=== PATIENT | male | born 1975 | race Caucasian/White ===

== ENCOUNTER → 2020-07-02 09:06 | Outpatient (CLI) | payer OTHER, SELFPAY ==
--- NOTE | 2020-07-02 | DI.RAD.S_ITS ---
PROCEDURE: FL SHOULDER INJECTION MR/CT LT INDICATIONS: PAIN IN LEFT SHOULDER TECHNIQUE: The indications, alternatives, benefits, risks, and complications of the procedure were explained to the patient. Written informed consent was obtained and placed in the chart. The shoulder was examined fluoroscopically and a site for needle placement chosen for entry into the glenohumeral joint from an anterior approach. The skin was prepped and draped in a sterile fashion, and 1% lidocaine infiltrated from skin down to joint capsule. A spinal needle was inserted into the glenohumeral joint, and a small amount of iodinated contrast media injected to confirm intra-articular placement of the needle tip. This was followed by approximately 12 mL dilute solution of a gadolinium containing MR contrast agent. The needle was removed and a dressing was applied. The patient was given postprocedural instructions and sent to the MR suite for MR imaging. FINDINGS: A single fluoroscopic spot image demonstrates intra-articular location of injected iodinated contrast. IMPRESSION: Successful fluoroscopically guided administration of dilute Gadolinium solution into the shoulder joint for MR arthrogram. Dictated by: Augustin Khan M.D. on 07/02/2020 at 10:39 Approved by: Augustin Kahn M.D. on 07/02/2020 at 10:39
--- NOTE | 2020-07-02 | DI.MRI.S_ITS ---
PROCEDURE: MR SHOULDER LT W CON INDICATIONS: PAIN IN LEFT SHOULDER TECHNIQUE: After the administration of 12 mL of dilute intra-articular Gadolinium contrast, oblique coronal T1 and T2 spin echo with fat saturation, oblique sagittal T1 spin echo with and without fat saturation, oblique sagittal T2 fast spin echo with fat saturation, axial T1 spin echo with fat saturation through the shoulder. COMPARISON: None. FINDINGS: Image quality: Excellent. Rotator cuff: There is tendinosis and low-grade articular surface partial-thickness tear involving distal supraspinatus at its insertion on the humeral head. Low-grade bursal surface partial thickness tear involving distal supraspinatus is also seen near musculotendinous junction. Distal infraspinatus tendon is intact. Distal subscapularis tendon is intact. No full-thickness rotator cuff tendon rupture. No rotator cuff muscle atrophy on sagittal images. Bones and bursae: No bone marrow contusions or fractures. Acromioclavicular joint osteoarthritic changes are noted with downward osteophyte formation depressing the musculotendinous junction of supraspinatus. Capsule and soft tissues: There is contrast extension and contour irregularity involving superior anterior labrum at 11 to 2 o'clock position. Adjacent septated paralabral cyst is seen measures 2 x 1.4 x 1.1 centimeters in size. The glenohumeral ligaments appear intact. The long head of the biceps tendon demonstrates normal location and morphology. The rotator interval appears normal, without fibrosis. The coracohumeral ligament is of normal thickness. No intra-articular bodies. IMPRESSION: 1. Superior anterior labral tear at 11 to 2 o'clock position with adjacent 2 x 1.4 x 1.1 cm perilabral cyst. 2. Tendinosis and low-grade articular and bursal surface partial thickness tear involving distal supraspinatus as above. No full-thickness rotator cuff tendon rupture. 3. Mild to moderate acromioclavicular joint osteoarthritis. Dictated by: Quincy Sidhu M.D. on 07/02/2020 at 12:12 Approved by: Quincy Sidhu M.D. on 07/02/2020 at 12:36
== END ==
DX: M25.512 Pain in left shoulder (principal); S43.492A Other sprain of left shoulder joint, initial encounter; M19.012 Primary osteoarthritis, left shoulder; M75.112 Incomplete rotator cuff tear or rupture of left shoulder, not specified as traumatic
CPT/HCPCS: 23350; 73222; 77002

== ENCOUNTER → 2021-10-21 13:51 | Outpatient (CLI) | payer OTHER, SELFPAY ==
[2021-10-21 15:39] LABS: COVID19 -Nasal RAPID Negative (Negative)
== END ==
PROVIDERS: Referring Provider Nurse Practitioner Family; Visit Provider Nurse Practitioner Family
DX: Z01.812 Encounter for preprocedural laboratory examination (principal); Z20.822 Contact with and (suspected) exposure to COVID-19
CPT/HCPCS: 87635

== ENCOUNTER 2021-10-22 10:20 | Day surgery (SDC) | payer OTHER, SELFPAY ==
--- NOTE | 2021-10-22 | PATH_ITS ---
[facility] Accession Number: [id number] No. of containers..02 Tissue . 01 Material submitted: . PART A: colon - POLYPS SIGMOID AND TRANSVERSE COLON PART B: colon - BIOPSY COLON POLYP AT 14 CM FROM ANAL VERGE . 02 Diagnosis: A. Sigmoid and Transverse Colon, Polyps, Biopsies: Fragments of tubular adenoma. . B. Colon Polyp at 14 cm, Biopsies: Tubulovillous adenoma, fragmented. Negative for high-grade dysplasia or malignancy. MRV 10/24/2021 1129 Local . 02 Electronically signed: . Jeremy Koenig MD, PhD, Pathologist NPI- [id number] . 01 Gross description: . Part A: POLYPS SIGMOID AND TRANSVERSE COLON: Received in formalin are 3 fragment(s) of tapia, soft tissue measuring 0.2 x 0.2 x 0.1 cm to 0.3 x 0.3 x 0.2 cm submitted entirely in 1 cassette(s) Part B: BIOPSY COLON POLYP AT 14 CM FROM ANAL VERGE: Received in formalin are multiple fragment(s) of tapia, soft tissue measuring 0.1 x 0.1 x 0.1 cm to 0.3 x 0.2 x 0.2 cm submitted entirely in 1 cassette(s) /SHIRA 10/23/2021 1943 Local . 02 Pathologist provided ICD-10: D12.3, D12.5, D12.6 . 02 CPT . 712151, 820101 Performed at: 01 [facility] [address] [place] [address], [place], [place] [id number] MD Dante Al MD Phone: [phone] Performed at: 02 [facility] [address] [place], [place] [id number] MD Lorraine Canada MD Phone: [phone]
[2021-10-22 10:31] VITALS: BP 173/108; PULSE 94; RESP 16; TEMP 36.5; O2SAT 99; BMI 29.9
[2021-10-22] MEDS: SODIUM CHLORIDE 0.9% 1,000 ML 84 ML IV (10:47)
--- NOTE | 2021-10-22 10:59 | PM.HP.1 ---
History of Present Illness History of Present Illness Date Patient Seen: 10/22/21 Time Patient Seen: 10:59 Chief complaint: SDC Narrative: I reviewed my August 26, 2021 note. No significant bleeding since that time. Otherwise no significant changes. Patient History Family & Social History Social History: household members spouse Tobacco & Substance use: Smoking Status Never smoker alcohol intake frequency holiday/special occasion Substance Use Type does not use Meds Home Medications and Allergies Home Medications Medication Instructions Recorded Confirmed Type qwgisag-hkygcsvhuntqz-kxhxiopp 250 2 tab PO Q6H PRN 10/01/21 10/01/21 History mg-250 mg-65 mg tablet (Excedrin Extra Strength) ibuprofen 200 mg capsule (Motrin 400 mg PO Q8H 10/01/21 10/22/21 History IB) Allergies Allergy/AdvReac Type Severity Reaction Status Date / Time No Known Drug Allergies Allergy Verified 10/22/21 10:26 Review of Systems Review of Systems ROS: Yes All systems reviewed with the patient and are negative except as otherwise documented Exam Vital Signs (past 8 hours): - 10/22/21 10:31 Temperature 97.7 F Pulse Rate 94 H Respiratory Rate 16 Blood Pressure 173/108 H Pulse Oximetry 99 Oxygen Delivery Method Room Air Const General: cooperative and comfortable Orientation: alert HENMT Head: normocephalic Ears: external ears normal Nose: external nose normal Face and sinus: normal facial exam Eyes General: appearance normal, both eyes and all related structures Neck Neck: normal visual inspection Chest Chest: normal inspection of the chest Resp Effort & Inspection: normal respiratory effort Cardio Rate: regular rate GI Inspection: normal to inspection Skin General: no rashes or lesions noted and No jaundice Neuro General: patient alert and moves all extremities Cognition: normal cognition Speech: speech normal Extrem General: no pedal edema Psych Appearance: grossly normal Assessment & Plan Assessment & Plan narrative: 46-year-old male with altered bowel habit history of rectal bleeding. Abdominal pain. Colonoscopy is pursued today. Time Spent With Patient Critical Care time: I spent a total of [] minutes of critical care time on this patient's care today; this time is exclusive of procedural time.
--- NOTE | 2021-10-22 11:01 | PM.PREOP ---
Pre-operative Note COVID-19 COVID-19 status: Negative Result date/Date tested (Pos, Neg/Pending): 10/21/21 Interval Note History & Physical reviewed/Exam performed by Physician: Yes Changes to H&P: Yes ASA Class (for procedural sedation): I
--- NOTE | 2021-10-22 11:34 | PM.OP.COLON ---
Operative Date/Time/Diagnoses Date of procedure: 10/22/21 Time of procedure: 11:35 Pre-op diagnosis: Change in bowel habit rectal bleeding Post-op diagnosis: same Procedure & Clinicians Study performed: Colonoscopy with hot snare polypectomy and cold snare polypectomy plus biopsies l Same procedure as scheduled: Yes Indications: Altered bowel habit rectal bleeding. Surgeon: Pato Marques Procedure Notes SCOAP/Timeout: Done Procedure in detail: After the risks and benefits were explained, written and verbal informed consent was obtained. The patient was brought into the procedure room and placed into the left lateral decubitus position. Please see nurse car rental deliverer notes for sedation details. Digital rectal examination was accomplished. The scope was introduced into the patient and advanced under direct visualization to the cecum as identified by the appendiceal orifice and ileocecal valve. The scope was slowly withdrawn to carefully examine the mucosa for any defects or lesions. Comprehensive imaging was accomplished throughout the rectum including the dentate line. The colon was decompressed, the scope was then removed from the patient who tolerated the procedure well. Bowel prep adequate Adult colonoscope Sedation minutes: 32 Complications: none Impression: There was a submucosal lesion in the rectum about 8 cm from the anal verge that was not necessarily classic for lipoma little more firm to the naked eye. There was a very irregular polyp at about 14 cm from the anal verge near the rectosigmoid junction. This was both sessile somewhat depressed irregular with an irregular polypoid component as well. Maximum dimension was perhaps 3 cm. Based on the overall appearance of this polyp I was concerned about advanced histology and possibly an element of deeper invasion. Multiple biopsies with us acquired. In the transverse and sigmoid there were 3 other small polyps the largest being 5 mm. Two of these were taken with cold snare a 3rd with a hot snare. There was an element of diverticulosis noted in the left colon. Endoscopic diagnosis 1. Irregular large rectosigmoid junction polyp 2. Rectal submucosal mass lesion 3. Diminutive colon polyps 4. Diverticulosis Post-procedure Plan for aftercare: 1. Await histopathology 2. Urgent rectal ultrasound to better characterize not only the small submucosal lesion but also the large rectal polyp. If it looks amenable to endoscopic mucosal resection hopefully this can be accomplished in the same procedure setting. Disposition: PACU
[2021-10-22 11:37] VITALS: BP 139/87; PULSE 89; RESP 15; TEMP 36.6; O2SAT 98
[2021-10-22 11:42] VITALS: BP 138/89; PULSE 92; RESP 22; O2SAT 97
[2021-10-22 11:47] VITALS: BP 152/89; PULSE 92; RESP 14; O2SAT 97
[2021-10-22 12:00] VITALS: BP 146/100; PULSE 71; RESP 14; TEMP 36.6; O2SAT 97
== END 2021-10-22 12:06 | disposition home or self-care (01) ==
PROVIDERS: Referring Provider Internal Medicine Gastroenterology; Visit Provider Internal Medicine Gastroenterology
PROC: 0DJD8ZZ Inspection of Lower Intestinal Tract, Via Natural or Artificial Opening Endoscopic (ICD-10-PCS; CPT 45378; principal; 2021-10-22 11:00)
DX: K62.5 Hemorrhage of anus and rectum (principal); R19.4 Change in bowel habit; Z72.0 Tobacco use; K57.30 Diverticulosis of large intestine without perforation or abscess without bleeding; D12.5 Benign neoplasm of sigmoid colon; D12.3 Benign neoplasm of transverse colon
CPT/HCPCS: 45385; 45380

== ENCOUNTER → 2021-10-24 12:46 | Outpatient (CLI) | payer OTHER, SELFPAY ==
[2021-10-24 13:01] LABS: Add Manual Diff / Slide Review NO; Basophils Absolute Auto 100 /uL (0-100); Basophils Percent Auto 0.9 % (0-2); Eosinophils Absolute Auto 200 /uL (0-450); Hemoglobin 14.5 g/dL (13.5-17.5); Lymphocytes Absolute Auto 1700 /uL (1100-4500); Lymphocytes Percent Auto 29.7 % (25-40); Mean Corpuscular HGB Conc 34.6 % (30-36); Mean Corpuscular Hemoglobin 31.7 PG (26-34); Mean Corpuscular Volume 91.5 fL (80-100); Monocytes Absolute Auto 500 /uL (0-900); Monocytes Percent Auto 9.1 % (3-14); Neutrophils Absolute Auto 3300 /uL (1500-7000); Neutrophils Percent Auto 57.3 % (50-75); Platelet Count 303 X10^3/uL (150-400); Red Blood Cell Count 4.59 X10^6/uL (4.5-5.9); Red Cell Distribution Width 12.7 % (11.6-14.8); White Blood Cell Count 5.7 X10^3/uL (4.5-11.0)
[2021-10-24 13:34] LABS: Alanine Aminotransferase 32 IU/L (<50); Albumin 4.7 g/dL (3.5-5.0); Albumin Globulin Ratio 1.8 (1.0-2.8); Alkaline Phosphatase 44 U/L (38-126); Aspartate Aminotransferase 24 IU/L (17-59); Bilirubin Total 0.7 mg/dL (0.2-1.3); Bilirubin Unconjugated 0.8 mg/dL (0.0-1.1); Globulin 2.6 g/dL (1.7-4.1); HEMOLYSIS < 15 (0-50); Total Protein 7.3 g/dL (6.3-8.2)
== END ==
PROVIDERS: Referring Provider Podiatrist; Visit Provider Podiatrist
DX: L60.3 Nail dystrophy (principal)
CPT/HCPCS: 36415; 80076; 85025

== ENCOUNTER 2021-12-16 15:48 | Emergency (ER) | payer OTHER, SELFPAY ==
[2021-12-16 16:13] VITALS: BP 179/117; PULSE 91; RESP 16; TEMP 36.5; O2SAT 99; BMI 29.9
[2021-12-16 18:48] LABS: INR 1.2 (0.9-1.3); Prothrombin Time 12.8 SECONDS (10.1-12.7)
[2021-12-16 18:50] LABS: Add Manual Diff / Slide Review NO; Basophils Absolute Auto 100 /uL (0-100); Basophils Percent Auto 0.8 % (0-2); Eosinophils Absolute Auto 100 /uL (0-450); Hematocrit 43.8 % (41-53); Lymphocytes Absolute Auto 1600 /uL (1100-4500); Lymphocytes Percent Auto 24.4 % (25-40); Mean Corpuscular HGB Conc 34.4 % (30-36); Mean Corpuscular Hemoglobin 31.6 PG (26-34); Mean Corpuscular Volume 91.9 fL (80-100); Monocytes Absolute Auto 500 /uL (0-900); Monocytes Percent Auto 7.2 % (3-14); Neutrophils Absolute Auto 4400 /uL (1500-7000); Neutrophils Percent Auto 65.6 % (50-75); Platelet Count 321 X10^3/uL (150-400); Red Blood Cell Count 4.76 X10^6/uL (4.5-5.9); Red Cell Distribution Width 12.5 % (11.6-14.8); White Blood Cell Count 6.6 X10^3/uL (4.5-11.0)
[2021-12-16 18:51] LABS: PTT Partial Thromboplastin Tim 34 SECONDS (26.4-36.2)
[2021-12-16 19:02] LABS: Alanine Aminotransferase 36 IU/L (<50); Albumin 4.9 g/dL (3.5-5.0); Albumin Globulin Ratio 1.5 (1.0-2.8); Alkaline Phosphatase 42 U/L (38-126); Aspartate Aminotransferase 28 IU/L (17-59); BUN Creatinine Ratio 15.8 (6-22); Bilirubin Total 0.7 mg/dL (0.2-1.3); Blood Urea Nitrogen 15 mg/dL (9-20); Calcium 9.7 mg/dL (8.4-10.2); Carbon Dioxide 31 mmol/L (22-32); Chloride 105 mmol/L (98-107); Estimated Glomerular Filt Rate > 60.0 mL/min (>60); Globulin 3.3 g/dL (1.7-4.1); Glucose 111 mg/dL (70-100); HEMOLYSIS < 15 (0-50); Sodium 140 mmol/L (137-145); Total Protein 8.2 g/dL (6.3-8.2)
[2021-12-16 20:37] VITALS: BP 153/110; PULSE 81; O2SAT 98
--- NOTE | 2021-12-16 20:37 | DI.CT.S_ITS ---
PROCEDURE: CT ABDOMEN PELVIS W CON INDICATIONS: rectal bleeding TECHNIQUE: After the administration of intravenous contrast, axial sections acquired from the lung bases to the pubic symphysis. Coronal and sagittal reformats were performed. For radiation dose reduction, the following was used: automated exposure control, adjustment of mA and/or kV according to patient size. COMPARISON: None. FINDINGS: Image quality: Excellent. Lung bases: Unremarkable. Heart: No significant findings. ABDOMEN: Liver: Mildly hypoattenuating liver may be secondary to the phase of contrast enhancement or fatty infiltration. Gallbladder: Unremarkable. Biliary ducts: Unremarkable. Pancreas: Unremarkable. Spleen: Unremarkable. Adrenal Glands: Unremarkable. Kidneys and Ureters: Unremarkable. Stomach and Bowel: Intermediate density liquid material is seen within the rectum. No active contrast extravasation is seen. Mild bowel wall thickening is seen involving and intermediate length segment of the ascending colon that could represent mild colitis. Normal appendix. Peritoneum: No abnormal intraperitoneal fluid. No free air. Ventral Wall: No hernias. Abdominal Nodes: No retroperitoneal or mesenteric adenopathy by size criteria. Vessels: Aorta and inferior vena cava are normal in size. PELVIS: Pelvic Organs: Unremarkable. Bladder: Unremarkable. Pelvic Nodes: No enlarged lymph nodes. Miscellaneous: No hernias are seen. Bones: Unremarkable. IMPRESSION: 1. Intermediate density the liquid material within the rectum could represent blood products, consistent with the reported history of rectal bleeding. No active extravasation of intravenous contrast material is seen. 2. Intermediate length segment of mild bowel wall thickening is seen in the ascending colon, which is nonspecific but may represent a mild colitis. Dictated by: Audi Graf M.D. on 12/16/2021 at 21:27 Approved by: Audi Graf M.D. on 12/16/2021 at 21:32
--- NOTE | 2021-12-16 20:37 | ED.GIBLEED ---
HPI - GI Bleed General Chief complaint: GI Bleed Stated complaint: BLOOD IN STOOL Time Seen by Provider: 12/16/21 20:20 Source: patient Mode of arrival: Ambulatory Limitations: no limitations History of Present Illness HPI Narrative: Patient is a 46-year-old male who is here for evaluation of less than 24 hours of bright red blood per rectum. He is not having any abdominal tenderness. No nausea vomiting. Not on anticoagulation. He recently had colonoscopy performed in biopsy taken for a abnormality that was seen on a prior colonoscopy. This was done approximately 10 days ago. He has not had any issues since then. Shortly after the procedure he did have a hemorrhoid but that seems of gone away. He has no fevers. No recent travel. No recent antibiotics. It is not painful for him to go to the bathroom. Related Data Home Medications Medication Instructions Recorded Confirmed rasdpwx-sjdwstbpfjevm-lgrzaftn 250 2 tab PO Q6H PRN 10/01/21 10/01/21 mg-250 mg-65 mg tablet (Excedrin Extra Strength) ibuprofen 200 mg capsule (Motrin 400 mg PO Q8H 10/01/21 10/22/21 IB) Previous Rx's Medication Instructions Recorded zaleplon 5 mg capsule 5 mg PO ONCE #1 cap 10/29/21 Allergies Allergy/AdvReac Type Severity Reaction Status Date / Time No Known Drug Allergies Allergy Verified 10/22/21 10:26 Review of Systems Constitutional Constitutional: Reports system reviewed and no additional complaints, except as documented Cardiovascular Cardiovascular: Reports system reviewed and no additional complaints, except as documented Respiratory Respiratory: Reports system reviewed and no additional complaints, except as documented Gastrointestinal Gastrointestinal: Reports as per HPI and Reports system reviewed and no additional complaints, except as documented Genitourinary Genitourinary: Reports system reviewed and no additional complaints, except as documented Integumentary/Breasts Skin/Breast: Reports system reviewed and no additional complaints, except as documented Hematologic/Lymphatic On Anticoagulants: No Patient History Medical History Healthy adult Social History household members: spouse Smoking Status: Never smoker Smoking Status: Never smoker alcohol intake frequency: holidays/special occasions only Substance Use Type: does not use Exam Initial Vital Signs Initial Vital Signs: Vital Signs Temperature 97.7 F 12/16/21 16:13 Pulse Rate 91 H 12/16/21 16:13 Respiratory Rate 16 12/16/21 16:13 Blood Pressure 179/117 H 12/16/21 16:13 Pulse Oximetry 99 12/16/21 16:13 Const General: cooperative, comfortable and well developed [facility] Head: normal to inspection and normocephalic Resp Effort & Inspection: normal respiratory effort Auscultation: clear to auscultation bilaterally Cardio Rate: regular rate Rhythm: regular rhythm GI Inspection: normal to inspection and non-distended Palpation: soft, No firm and No tender Rectal Exam: hemorrhoids (Nonthrombosed internal a right) Skin General: no rashes or lesions noted Neuro General: patient alert, patient awake, patient oriented x3 and moves all extremities Extrem General: normal to inspection and capillary refill normal Psych Appearance: grossly normal and well kempt Course Orders Ordered: ED Orders 12/16/21 20:37 CT abdomen pelvis w con Stat Vital Signs Vital signs: Vital Signs - 8 hr 12/16/21 21:30 12/16/21 22:00 12/16/21 22:07 Pulse Rate 71 74 82 Blood Pressure 169/98 H Pulse Oximetry 97 97 97 12/16/21 22:30 Pulse Rate 73 Blood Pressure Pulse Oximetry 96 MDM - GI Bleed Lab Data Attestation: I reviewed the patient's lab results. Result diagrams: 12/16/21 18:31 12/16/21 18:31 Labs: Lab Results 12/16/21 12/16/21 12/16/21 Range/Units 18:31 18:31 18:31 WBC 6.6 (4.5-11.0) X10^3/uL RBC 4.76 (4.5-5.9) X10^6/uL Hgb 15.0 (13.5-17.5) g/dL Hct 43.8 (41-53) % MCV 91.9 (80-100) fL MCH 31.6 (26-34) PG MCHC 34.4 (30-36) % RDW 12.5 (11.6-14.8) % Plt Count 321 (150-400) X10^3/uL Neut % (Auto) 65.6 (50-75) % Lymph % (Auto) 24.4 L (25-40) % [place] % (Auto) 7.2 (3-14) % Eos % (Auto) 2.0 (2-4) % Baso % (Auto) 0.8 (0-2) % Neut # (Auto) 4400 (5164-9158) /uL Lymph # (Auto) 1600 (0811-7015) /uL [place] # (Auto) 500 (0-900) /uL Eos # (Auto) 100 (0-450) /uL Baso # (Auto) 100 (0-100) /uL PT 12.8 H (10.1-12.7) SECONDS INR 1.2 (0.9-1.3) APTT 34 (26.4-36.2) SECONDS Sodium 140 (137-145) mmol/L Potassium 4.0 (3.4-5.1) mmol/L Chloride 105 (98-107) mmol/L Carbon Dioxide 31 (22-32) mmol/L BUN 15 (9-20) mg/dL Creatinine 0.95 (0.66-1.25) mg/dL Estimated GFR > 60.0 (>60) mL/min BUN/Creatinine Ratio 15.8 (6-22) Glucose 111 H (70-100) mg/dL Calcium 9.7 (8.4-10.2) mg/dL Total Bilirubin 0.7 (0.2-1.3) mg/dL AST 28 (17-59) IU/L ALT 36 (<50) IU/L Alkaline Phosphatase 42 (38-126) U/L Total Protein 8.2 (6.3-8.2) g/dL Albumin 4.9 (3.5-5.0) g/dL Globulin 3.3 (1.7-4.1) g/dL Albumin/Globulin Ratio 1.5 (1.0-2.8) Blood Type Antibody Screen 12/16/21 Range/Units 18:31 WBC (4.5-11.0) X10^3/uL RBC (4.5-5.9) X10^6/uL Hgb (13.5-17.5) g/dL Hct (41-53) % MCV (80-100) fL MCH (26-34) PG MCHC (30-36) % RDW (11.6-14.8) % Plt Count (150-400) X10^3/uL Neut % (Auto) (50-75) % Lymph % (Auto) (25-40) % [place] % (Auto) (3-14) % Eos % (Auto) (2-4) % Baso % (Auto) (0-2) % Neut # (Auto) (5451-8109) /uL Lymph # (Auto) (1594-4638) /uL [place] # (Auto) (0-900) /uL Eos # (Auto) (0-450) /uL Baso # (Auto) (0-100) /uL PT (10.1-12.7) SECONDS INR (0.9-1.3) APTT (26.4-36.2) SECONDS Sodium (137-145) mmol/L Potassium (3.4-5.1) mmol/L Chloride (98-107) mmol/L Carbon Dioxide (22-32) mmol/L BUN (9-20) mg/dL Creatinine (0.66-1.25) mg/dL Estimated GFR (>60) mL/min BUN/Creatinine Ratio (6-22) Glucose (70-100) mg/dL Calcium (8.4-10.2) mg/dL Total Bilirubin (0.2-1.3) mg/dL AST (17-59) IU/L ALT (<50) IU/L Alkaline Phosphatase (38-126) U/L Total Protein (6.3-8.2) g/dL Albumin (3.5-5.0) g/dL Globulin (1.7-4.1) g/dL Albumin/Globulin Ratio (1.0-2.8) Blood Type O Negative Antibody Screen Negative Imaging Data CT scan - abdomen/pelvis: Radiologist's Impression: [address] [address] [address] Scan Report Signed Patient: Jeffery Bridges MR#: [id number] : 1975 Acct:[id number] Age/Sex: 46 / M Date of Service: 12/16/21 Loc: ED Accession Number: [id number] ?? Procedure: CT abdomen pelvis w con Ordering Provider: Javier Henry D.O. PROCEDURE:? CT ABDOMEN PELVIS W CON ? INDICATIONS:? rectal bleeding ? TECHNIQUE:? After the administration of intravenous contrast, axial sections acquired from the lung bases to the pubic symphysis.? Coronal and sagittal reformats were performed.? For radiation dose reduction, the following was used:? automated exposure control, adjustment of mA and/or kV according to patient size.? ? COMPARISON:? None. ? FINDINGS:? Image quality:? Excellent.? ? Lung bases:? Unremarkable. Heart:? No significant findings. ? ABDOMEN: Liver:? Mildly hypoattenuating liver may be secondary to the phase of contrast enhancement or fatty infiltration.? ? Gallbladder:? Unremarkable. Biliary ducts:? Unremarkable.? ? Pancreas:? Unremarkable.? ? Spleen:? Unremarkable.? ? Adrenal Glands:? Unremarkable.? ? Kidneys and Ureters:? Unremarkable.? ? ? Stomach and Bowel:? Intermediate density liquid material is seen within the rectum.? No active contrast extravasation is seen.? Mild bowel wall thickening is seen involving and intermediate length segment of the ascending colon that could represent mild colitis.? Normal appendix. Peritoneum:? No abnormal intraperitoneal fluid.? No free air.? ? Ventral Wall: ? No hernias.? Abdominal Nodes:? No retroperitoneal or mesenteric adenopathy by size criteria.? Vessels:? Aorta and inferior vena cava are normal in size.? ? PELVIS: Pelvic Organs:? Unremarkable.? ? Bladder:? Unremarkable.? ? Pelvic Nodes: No enlarged lymph nodes.? Miscellaneous: No hernias are seen. ? ? ? Bones:? Unremarkable.? IMPRESSION:? 1. Intermediate density the liquid material within the rectum could represent blood products, consistent with the reported history of rectal bleeding.? No active extravasation of intravenous contrast material is seen. 2. Intermediate length segment of mild bowel wall thickening is seen in the ascending colon, which is nonspecific but may represent a mild colitis. ? ? Dictated by: Audi Graf M.D. on 12/16/2021 at 21:27 ? ? Approved by: Audi Graf M.D. on 12/16/2021 at 21:32? [facility] Narrative Medical decision making narrative: Patient is benign exam. He is not tachycardic. He is not anemic. He does have a nonthrombosed internal hemorrhoid. He has obviously heme-positive stool on rectal exam. CT scan does not show any signs of diverticulitis. No indication for antibiotics. Have a high suspicion that his rectal bleeding is related to the biopsy that was taken 10 days ago. I suspect that the eschar that was placed over the area when it was cauterized has sloughed. I did discuss this with him. There is no indication for transfusion. No indication for admission the hospital. No indication for emergent surgical consultation. He does have a telephone conference with the GI provider who performed the procedure artery scheduled for tomorrow morning. He was instructed to keep this. He was given strict return precautions. He expressed understanding and agreement. Discharge Plan Departure Patient Disposition: Home Clinical Impression: Rectal bleeding Instructions: DI for Rectal Bleeding Activity Restrictions/Additional Instructions: I recommend that you continue take all of your medications as directed. Keep your scheduled telephone appointment with your provider artery scheduled for tomorrow. Return to the emergency department for any new or worsening symptoms. Prescriptions: No Action zaleplon 5 mg capsule 5 mg PO ONCE Qty: 1 0RF ibuprofen [Motrin IB] 200 mg capsule 400 mg PO Q8H 0RF Excedrin Extra Strength 250-250-65 mg tablet 2 tab PO Q6H PRN (Reason: Headache) 0RF
--- NOTE | 2021-12-16 20:43 | PC.NURSE ---
today pt has some blood streaked stool, then later had a gushing of bright red blood, pt denies any dizziness has recently had some GI issues and has been being worked up for that
--- NOTE | 2021-12-16 20:45 | PC.NURSE ---
started in triage prior to 190
--- NOTE | 2021-12-16 20:55 | PC.NURSE ---
to ct per stretcher
[2021-12-16 21:30] VITALS: PULSE 71; O2SAT 97
[2021-12-16 22:00] VITALS: PULSE 74; O2SAT 97
[2021-12-16 22:07] VITALS: BP 169/98; PULSE 82; O2SAT 97
[2021-12-16 22:30] VITALS: PULSE 73; O2SAT 96
== END 2021-12-16 22:51 | disposition home or self-care (01) ==
PROVIDERS: Emergency Medicine; Emergency Provider Emergency Medicine
DX: K62.5 Hemorrhage of anus and rectum (principal)
CPT/HCPCS: 74177; 80053; 85025; 85610; 85730; 86850; 86900; 86901; 99283; 99284; Q9967

== ENCOUNTER → 2021-12-25 12:05 | Outpatient (CLI) | payer OTHER, SELFPAY ==
--- NOTE | 2021-12-25 14:49 | DI.MRI.S_ITS ---
PROCEDURE: MR PELIS WO/W CON INDICATIONS: Malignant neoplasm of rectosigmoid junction TECHNIQUE: Coronal HASTE, sagittal T2 FSE, axial T1 FSE, axial and coronal nonbreath-hold T2 FSE. Axial dynamic VIBE during administration of contrast. Post-contrast axial and coronal VIBE/2-D FLASH with fat saturation from the iliac crests to the symphysis. Optional diffusion weighted imaging and ADC may be performed. COMPARISON: [facility], CT, CT ABDOMEN PELVIS W CON, 12/16/2021, 20:59. FINDINGS: Image quality: Excellent. Rectum: Morphology: Polypoid. Clock face of tumor involvement: 5:00 to 11:00 Mucinous (high T2 signal): No Craniocaudal length: Approximately 2.7 cm. Distance to anal verge: Approximately 10 cm. Distance to top of sphincter complex/anorectal junction: Approximately 7.5 cm. Relationship to anterior peritoneal reflection: Above Tumor at or below puborectalis sling: No T staging: Depth of extramural invasion: No evidence of extramural invasion. Extramural vascular invasion: No evidence of extramural vascular invasion. T3 tumors only: distance to mesorectal fascia (circumferential resection margin): Not applicable. Pelvic organ involvement: Genitourinary: Not identified. Pelvic sidewall (obturator internus, piriformis, ischiococcygeus muscles): Not identified. Pelvic floor (pubococcygeus, iliococcygeus, puborectalis, levator plate): Not identified. Sacrum: Not identified. Vessels (internal and external iliac arteries and veins): Not identified. Nerves (lumbosacral nerve roots): Not identified. Regional lymph nodes (mesorectal, inguinal, iliac): No definite lymphadenopathy by size criteria. Other bowel and peritoneum: No pathologic free pelvic fluid. More proximal colon and small bowel loops are normal in caliber. Bones: Marrow is normal in overall signal. Visualized osseous structures demonstrate no suspicious focal lesions. IMPRESSION: 1. Intraluminal polypoid mass demonstrated at the rectosigmoid junction consistent with patient's history of neoplasm. No evidence of extramural extension. 2. No evidence of pelvic lymphadenopathy by size criteria. Dictated by: Dante Claros M.D. on 12/25/2021 at 15:21 Approved by: Dante Claros M.D. on 12/25/2021 at 15:29
== END ==
PROVIDERS: Referring Provider Internal Medicine; Visit Provider Internal Medicine
DX: C19 Malignant neoplasm of rectosigmoid junction (principal)
CPT/HCPCS: 72197